=== PATIENT | female | born 1930 | race Caucasian/White ===

== ENCOUNTER 2018-06-25 14:35 | Inpatient (IN) ==
[2018-06-25 14:47] LABS: Basophils % 0.1 % (0.1-2.0); Eosinophils % 0.1 % (0.1-12.0); Hematocrit 38.4 % (37.0-47.0); Hemoglobin 11.9 g/dL (12.2-16.2); Lymphocytes # 1.2 K/mm3 (0.7-4.5); Lymphocytes % 6.2 K/mm3 (10-50); Mean Corpuscular HGB Conc 31.1 g/dL (31.8-35.4); Mean Corpuscular Hemoglobin 29.6 pg (27.0-31.2); Mean Corpuscular Volume 95.3 fl (81-99); Mean Platelet Volume 9.6 fl (7.4-10.4); Monocytes # 1.3 K/mm3 (0.1-1.0); Monocytes % 6.6 % (1.7-9.3); Neutrophils # 17.1 K/mm3 (1.8-7.8); Neutrophils % 86.9 % (37.0-80.0); Platelet Count 195 K/mm3 (142-424); Red Blood Count 4.03 M/mm3 (4.20-5.40); Red Cell Distribution Width 13.7 % (11.5-17.5); White Blood Count 19.7 K/mm3 (4.8-10.8)
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
[2018-06-25 15:00] LABS: Lymphocytes % 7 % (10-50); Monocytes % 5 % (2-9); Neutrophils % 85 % (42-76); RBC Morphology Normal; Total Cells Counted 100
[2018-06-25 15:06] LABS: Alanine Aminotransferase 13 U/L (12-78); Anion Gap 11.7 mEq/L (5-15); Aspartate Amino Transferase 12 U/L (15-37); Bilirubin,Total 0.9 mg/dL (0.2-1.0); Blood Urea Nitrogen 20 mg/dL (7-18); Calcium 8.6 mg/dL (8.5-10.1); Carbon Dioxide 29 mmol/L (21.0-32.0); Chloride 109 mmol/L (98-107); Creatine Kinase 164 U/L (26-192); Glucose 105 mg/dL (74-106); Potassium 3.7 mmoL/L (3.5-5.1); Sodium 146 mmol/L (136-145); Total Protein,Serum 6.4 gm/dL (6.4-8.2)
[2018-06-25 15:07] LABS: Albumin Level 2.9 gm/dL (3.4-5.0); Albumin/Globulin Ratio 0.8 (1.1-1.8); Alkaline Phosphatase 81 U/L (46-116); Globulin 3.5 gm/dl (1.3-3.2)
[2018-06-25 16:04] LABS: Microscopic, Urine URINE MICROSCOPIC (MICROSCOPIC)
[2018-06-25 16:06] LABS: Appearance,Urine CLEAR (Clear); Blood, Urine Negative (Negative); Color,Urine YELLOW (Yellow); Glucose,Urine (UA) Negative (Negative); Ketones,Urine TRACE (Negative); Leukocyte Esterase,Urine Negative (Negative); Protein,Urine 1+ (Negative); Specific Gravity, Urine 1.025 (1.005-1.030)
[2018-06-25 16:13] LABS: Amphetamine/Metha Screen,Urine Negative ng/mL (<1000); Barbiturates Screen,Urine Negative ng/mL (<200); Benzodiazepines Screen,Urine Negative ng/mL (<200); Cannabinoid Screen,Urine Negative ng/mL (<50); Cocaine Screen,Urine Negative ng/mL (<300); Methadone Screen,Urine Negative ng/mL (<300); Opiate Screen,Urine Negative ng/mL (<300); Phencyclidine Screen,Urine Negative ng/mL (<25)
[2018-06-25 16:15] LABS: Bilirubin,Urine Negative (Negative)
[2018-06-25 16:18] LABS: Bacteria,Urine 3+ /lpf; Mucus,Urine 3+ /lpf
--- NOTE | 2018-06-26 07:31 | Pharmacy Consult Notes ---
[facility] Pharmacy VTE Monitoring - Patient Demographics Admission date: 06/25/18 Report Date: 06/26/18 Time: 07:30 Allergies/Adverse Reactions: Patient Allergies No Known Allergies Allergy (Verified 11/22/17 19:04) Height: 1.63 m Weight: 53.779 kg Patient Problems: Current Active Problems Altered mental status (Acute) Dementia (Acute) Aggressive behavior (Acute) DNR (do not resuscitate) (Acute) Pneumonia (Acute) Leucocytosis (Acute) Constipation (Acute) Hypernatremia (Acute) Dehydration (Acute) Pansinusitis (Acute) Lipoma of scalp (Acute) Compression fracture (Acute) - VTE Risk Labs: VTE Related Lab Results Hgb 11.9 g/dL (12.2-16.2) L 06/25/18 14:35 Hct 38.4 % (37.0-47.0) 06/25/18 14:35 Plt Count 195 K/mm3 (142-424) 06/25/18 14:35 BUN 20 mg/dL (7-18) H 06/25/18 14:35 Creatinine 1.06 mg/dL (0.55-1.02) H 06/25/18 14:35 Estimated Creat Clear 54 mL/min (0-300) 06/25/18 14:35 VTE Score: 3 VTE Risk Level: Low Risk - Prophylaxis VTE Prophylaxis Ordered?: Yes Types of VTE Prophylaxis: TEDS Knee High Location of Applied Device: Bilateral Lower Extremeties - VTE Diagnosis Confirmed Treatment or plan recommended: Continue Current Treatment
[2018-06-26 07:51] LABS: Basophils % 0.2 % (0.1-2.0); Eosinophils % 0.3 % (0.1-12.0); Hematocrit 35.8 % (37.0-47.0); Lymphocytes # 1.3 K/mm3 (0.7-4.5); Lymphocytes % 8.2 K/mm3 (10-50); Mean Corpuscular HGB Conc 30.7 g/dL (31.8-35.4); Mean Corpuscular Hemoglobin 29.7 pg (27.0-31.2); Mean Corpuscular Volume 96.6 fl (81-99); Mean Platelet Volume 9.9 fl (7.4-10.4); Monocytes # 0.9 K/mm3 (0.1-1.0); Monocytes % 5.5 % (1.7-9.3); Neutrophils # 13.3 K/mm3 (1.8-7.8); Neutrophils % 85.8 % (37.0-80.0); Platelet Count 186 K/mm3 (142-424); Red Cell Distribution Width 13.6 % (11.5-17.5); White Blood Count 15.5 K/mm3 (4.8-10.8)
[2018-06-26 07:57] LABS: Anion Gap 11.8 mEq/L (5-15); Calcium 8.5 mg/dL (8.5-10.1); Potassium 3.8 mmoL/L (3.5-5.1)
--- NOTE | 2018-06-26 08:18 | History & Physical Report ---
*Admission Date: 06/25/18 *Chief complaint: Mental status changes/confusion *History of present illness: 87-year-old white female, long-term resident of [facility], who has a history of dementia but without behavioral disturbances who was brought to the emergency department because of increasing confusion aggressive behavior, low-grade fevers and fall half-way. In the emergency department she was evaluated, found to have leukocytosis and a possible infiltrate on portable chest x-ray. Other x-rays were nondiagnostic. She was admitted to hospital with a presumptive diagnosis of healthcare acquired pneumonia on [employer]. This morning her family notes that she is "more like herself" and has been communicative, present and has eaten some breakfast. [facility] History I have reviewed the patient's past medical history: Yes Medical History: Reports:: Dementia, Depression, Gastroesophageal Reflux Disease(GERD), Transient Ischemic Attacks (TIA) Denies:: Cancer, Diabetes Mellitus Type 1, Diabetes Mellitus Type 2, Internal Pacemaker, MRSA Other Medical History: Reports: Arthritis Other Surgeries: No: Pacemaker Amputation: No - *Social History Educational Level: Completed High School Smoking Status: Unknown if ever smoked Alcohol Intake: never Occupational Status: retired Housing: half-way Household Members: other - Psychiatric History Expresses thoughts of harming self/others: None Suicide Plan Description: No Plan Review of Systems - Review of Systems Review of systems:: pertinent systems reviewed and negative unless documented below Patient is pleasant, rubs pain in her chest when she takes a deep breath but otherwise denies any other pains. Review of systems is difficult because of her dementia but she denies dyspnea, chest pain or abdominal complaints. [facility] Home Medications Medication Instructions Recorded Confirmed Type Citalopram Hydrobromide [Celexa 10 mg PO DAILY 11/22/17 06/25/18 History 10mg Tablet] Ibuprofen [Motrin 400mg 400 mg PO QID 11/22/17 06/25/18 History tablet] Loratadine [Allergy Relief] 10 mg PO DAILY 11/22/17 06/25/18 History Memantine HCl/Donepezil HCl 1 each PO HS 11/22/17 06/25/18 History [Namzaric 14 mg-10 mg Capsule] OLANZapine [Olanzapine] 2.5 mg PO BID 11/22/17 06/25/18 History raNITIdine HCl [Ranitidine HCl] 150 mg PO BID 11/22/17 06/25/18 History Allergies Allergy/AdvReac Type Severity Reaction Status Date / Time No Known Allergies Allergy Verified 11/22/17 19:04 Exam Vital signs and Labs for Last 24 Hours: Temp Pulse Resp BP Pulse Ox 97.7 F 78 22 126/74 91 L 06/26/18 04:00 06/26/18 04:00 06/26/18 04:00 06/26/18 04:00 06/26/18 04:00 Laboratory Results - last 24 hr 06/25/18 14:35: WBC 19.7 H, RBC 4.03 L, Hgb 11.9 L, Hct 38.4, MCV 95.3, MCH 29.6, MCHC 31.1 L, RDW 13.7, Plt Count 195, MPV 9.6, Neut % (Auto) 86.9 H, Lymph % (Auto) 6.2 L, [place] % (Auto) 6.6, Eos % (Auto) 0.1, Baso % (Auto) 0.1, Neut # (Auto) 17.1 H, Lymph # (Auto) 1.2, [place] # (Auto) 1.3 H, Eos # (Auto) 0.0, Baso # (Auto) 0.0, Total Counted 100, Neutrophils % (Manual) 85 H, Band Neutrophils % 2.0, Lymphocytes % (Manual) 7 L, Atypical Lymphs % 1.0, Monocytes % (Manual) 5, Platelet Estimate Normal, RBC Morphology Normal 06/25/18 14:35: Sodium 146 H, Potassium 3.7, Chloride 109 H, Carbon Dioxide 29, Anion Gap 11.7, BUN 20 H, Creatinine 1.06 H, Estimated Creat Clear 54, Estimated GFR 49 L, Est GFR ( Amer) 59, Glucose 105, Calcium 8.6, Total Bilirubin 0.9, AST 12 L, ALT 13, Alkaline Phosphatase 81, Total Creatine Kinase 164, CK-MB (CK-2) 1.5, CK-MB (CK-2) Rel Index 0.9, Troponin I < 0.02, Total Protein 6.4, Albumin 2.9 L, Globulin 3.5 H, Albumin/Globulin Ratio 0.8 L 06/25/18 14:35: Lactate 1.2 06/25/18 16:00: Urine Color Yellow, Urine Appearance Clear, Urine pH 6.0, Ur Specific [place] 1.025, Urine Protein 1+, Urine Glucose (UA) Negative, Urine Ketones Trace, Urine Blood Negative, Urine Nitrate Negative, Urine Bilirubin Negative, Urine Urobilinogen 1.0, Ur Leukocyte Esterase Negative, Urine WBC 5- 10, Ur Squamous Epith Cells 3-5, Urine Bacteria 3+, Urine Mucus 3+ 06/25/18 16:00: Urine Opiates Screen Negative, Urine Methadone Screen Negative, Ur Barbituates Screen Negative, Ur Phencyclidine Scrn Negative, Ur Amphetamines Screen Negative, U Benzodiazepines Scrn Negative, Urine Cocaine Screen Negative, U Marijuana (THC) Screen Negative 06/26/18 07:45: WBC 15.5 H, RBC 3.70 L, Hgb 11.0 L, Hct 35.8 L, MCV 96.6, MCH 29.7, MCHC 30.7 L, RDW 13.6, Plt Count 186, MPV 9.9, Neut % (Auto) 85.8 H, Lymph % (Auto) 8.2 L, [place] % (Auto) 5.5, Eos % (Auto) 0.3, Baso % (Auto) 0.2, Neut # (Auto) 13.3 H, Lymph # (Auto) 1.3, [place] # (Auto) 0.9, Eos # (Auto) 0.0, Baso # (Auto) 0.0 06/26/18 07:45: Sodium 147 H, Potassium 3.8, Chloride 113 H, Carbon Dioxide 26, Anion Gap 11.8, BUN 18, Creatinine 0.97, Estimated Creat Clear 34, Estimated GFR 54 L, Est GFR ( Amer) 66, Glucose 88, Calcium 8.5, Magnesium 1.9 I & O for Last 24 hours: Intake & Output 06/23/18 06/24/18 06/25/18 06/26/18 11:59 11:59 11:59 11:59 Intake Total 1036 / 1036 Balance 1036 / 1036 Weight 118 lb 9 oz Narrative: Patient appears her stated age. Is frail-appearing. Oropharynx is clear. No JVD. Lungs have rhonchi in the bases bilaterally. Heart rate regular. Abdomen is soft and scaphoid. Extremity's have no edema or clubbing. Is globally weak but able to move all extremities symmetrically. Assessment and Plan (1) Nosocomial pneumonia Current visit: Yes Status: Acute Category: Medical Code(s): J18.9 - Pneumonia, unspecified organism Given patient's leukocytosis and response to antibiotics clinically she would appear to have pneumonia. Continue current antibiotics. Check glucoses r esponse tomorrow Repeat chest x-ray with two-view film now that she is able to sit up and tolerate this procedure. (2) Altered mental status Current visit: Yes Status: Acute Category: Medical Code(s): R41.82 - Altered mental status, unspecified Seems to be improving, continue current medications. Patient will stay on her dementia medications (3) DNR (do not resuscitate) Current visit: Yes Status: Acute Category: Medical Code(s): Z66 - Do not resuscitate Continue to respect DNR status (4) Dehydration Current visit: Yes Status: Acute Category: Medical Code(s): E86.0 - Dehydration Status post IV fluids. Watch sodium levels tomorrow (5) Hypernatremia Current visit: Yes Status: Acute Category: Medical Code(s): E87.0 - Hyperosmolality and hypernatremia
[2018-06-26 09:38] LABS: Lymphocytes % 8 % (10-50); Monocytes % 2 % (2-9); Neutrophils % 88 % (42-76); RBC Morphology Normal; Total Cells Counted 100
--- NOTE | 2018-06-27 00:45 | Progress Note ---
Internal Medicine - PN: Subj *Date: 06/27/18 *Time: 08:45 Interval history: No acute events overnight. Remained afebrile, Eating and drinking well with no signs of aspiration. Hemodynamically stable. Family states patient is ~75% her baseline. No SOA, CP, Dysuria, Fevers Exam Vital signs and Labs for Last 24 Hours: Temp Pulse Resp BP Pulse Ox 98.9 F 71 17 125/63 95 06/26/18 23:59 06/26/18 23:59 06/26/18 23:59 06/26/18 23:59 06/26/18 23:59 Laboratory Results - last 24 hr 06/26/18 07:45: WBC 15.5 H, RBC 3.70 L, Hgb 11.0 L, Hct 35.8 L, MCV 96.6, MCH 29.7, MCHC 30.7 L, RDW 13.6, Plt Count 186, MPV 9.9, Neut % (Auto) 85.8 H, Lymph % (Auto) 8.2 L, [place] % (Auto) 5.5, Eos % (Auto) 0.3, Baso % (Auto) 0.2, Neut # (Auto) 13.3 H, Lymph # (Auto) 1.3, [place] # (Auto) 0.9, Eos # (Auto) 0.0, Baso # (Auto) 0.0, Total Counted 100, Neutrophils % (Manual) 88 H, Band Neutrophils % 2.0, Lymphocytes % (Manual) 8 L, Monocytes % (Manual) 2, Platelet Estimate Normal, RBC Morphology Normal 06/26/18 07:45: Sodium 147 H, Potassium 3.8, Chloride 113 H, Carbon Dioxide 26, Anion Gap 11.8, BUN 18, Creatinine 0.97, Estimated Creat Clear 34, Estimated GFR 54 L, Est GFR ( Amer) 66, Glucose 88, Calcium 8.5, Magnesium 1.9 I & O for Last 24 hours: Intake & Output 06/24/18 06/25/18 06/26/18 06/27/18 23:59 23:59 23:59 23:59 Intake Total 290 / 290 1346 / 1346 Balance 290 / 290 1346 / 1346 Weight 53.779 kg 53.779 kg Microbiology Reports for the Last 24 Hours: Microbiology 06/26/18 17:53 Sputum - Expectorated Sputum Gram Stain - Final 06/25/18 16:00 Urine,Catheterized Urine Culture - Preliminary NO GROWTH AFTER 24 HOURS - Constitutional no acute distress, thin - *Routine HEENT Exam Head: Present: normocephalic, atraumatic Eye: Present: PERRL ENT: Present: mucous membranes moist - *Routine Neck Exam Present: supple. Absent: JVD - *Routine Respiratory Exam Present: CTA bilaterally. Absent: accessory muscle use, prolonged expiratory phase, wheezes, crackles - *Routine Cardiovascular Exam Present: RRR, Normal S1, Normal S2. Absent: murmur - *Routine Abdominal Exam Present: soft, normoactive bowel sounds - *Routine Rectal Exam Patient deferred: visual exam - *Routine Exam Patient deferred: external exam - *Routine Extremities Exam Absent: cyanosis, clubbing, edema - *Routine Skin Exam Present: intact Comments: thin skin, multiple superficial wounds. - *Routine Neurological Exam Present: alert Assessment and Plan (1) Nosocomial pneumonia Current visit: Yes Status: Acute Category: Medical Code(s): J18.9 - Pneumonia, unspecified organism continue IV abx, Sx defervescing - transition to PO this evening - Wean O2 as tolerated, goal >92% when awake and >88% when asleep (2) Altered mental status Current visit: Yes Status: Acute Category: Medical Code(s): R41.82 - Altered mental status, unspecified (3) DNR (do not resuscitate) Current visit: Yes Status: Acute Category: Medical Code(s): Z66 - Do not resuscitate (4) Dehydration Current visit: Yes Status: Acute Category: Medical Code(s): E86.0 - Dehydration (5) Hypernatremia Current visit: Yes Status: Acute Category: Medical Code(s): E87.0 - H yperosmolality and hypernatremia stable ,poor PO intake
[2018-06-27 06:38] LABS: Anion Gap 9.1 mEq/L (5-15); Calcium 8.1 mg/dL (8.5-10.1); Potassium 3.1 mmoL/L (3.5-5.1)
[2018-06-27 06:42] LABS: Basophils % 0.2 % (0.1-2.0); Eosinophils # 0.1 K/mm3 (0.0-0.4); Eosinophils % 1.7 % (0.1-12.0); Hematocrit 32.3 % (37.0-47.0); Lymphocytes # 1.1 K/mm3 (0.7-4.5); Lymphocytes % 12.5 K/mm3 (10-50); Mean Corpuscular Hemoglobin 29.6 pg (27.0-31.2); Mean Corpuscular Volume 95.4 fl (81-99); Mean Platelet Volume 9.8 fl (7.4-10.4); Monocytes # 0.6 K/mm3 (0.1-1.0); Monocytes % 7.1 % (1.7-9.3); Neutrophils # 6.6 K/mm3 (1.8-7.8); Neutrophils % 78.5 % (37.0-80.0); Platelet Count 197 K/mm3 (142-424); Red Blood Count 3.38 M/mm3 (4.20-5.40); Red Cell Distribution Width 13.5 % (11.5-17.5); White Blood Count 8.4 K/mm3 (4.8-10.8)
--- NOTE | 2018-06-28 08:48 | Discharge Summary ---
General - General Admission date:: 06/25/18 Discharge date: 06/28/18 HPI HPI: 87-year-old white female, long-term resident of [facility], who has a history of dementia but without behavioral disturbances who was brought to the emergency department because of increasing confusion aggressive behavior, low-grade fevers and fall [facility]. In the emergency department she was evaluated, found to have leukocytosis and a possible infiltrate on portable chest x-ray. Other x-rays were nondiagnostic. She was admitted to hospital with a presumptive diagnosis of healthcare acquired pneumonia on [employer]. This morning her family notes that she is "more like herself" and has been communicative, present and has eaten some breakfast. Hospital Course Hospital Course: The patient continued to improve in a stepwise fashion, improve her appetite and her mental status changes resolved, and she improved back to her baseline pleasantly confused state. Chest x-ray showed evidence of pneumonia and she was continued on levofloxacin. This morning she was well, most of her breakfast, family was very comfortable with transferring back to [facility] to continue antibiotic therapy orally. Discharge plan will be to do levofloxacin 500 mg daily for the next week. Follow-up will be per our [facility] rounds. Please note she will continue to maintain DNR status. Objective Vital signs: Temp Pulse Resp BP Pulse Ox 99.4 F 78 20 148/81 90 L 06/28/18 07:38 06/28/18 07:38 06/28/18 07:38 06/28/18 07:38 06/28/18 07:38 Narrative: Patient is pleasant, follows most commands.. Oropharynx clear. No JVD. Lungs have some rhonchi but much improved over admission exam, heart rate regular. No edema noted. Results Labs on day of discharge: Preliminary micro results at discharge 06/26/18 17:53 Sputum Culture - Preliminary Sputum - Expectorated Sputum 06/25/18 14:35 Blood Culture - Preliminary Blood NO GROWTH AFTER 48 HOURS 06/25/18 14:35 Blood Culture - Preliminary Blood NO GROWTH AFTER 48 HOURS DS: Diagnosis - Discharge Diagnosis (1) Nosocomial pneumonia Status: Acute (2) Altered mental status Status: Resolved (3) DNR (do not resuscitate) Status: Chronic (4) Dehydration Status: Resolved (5) Hypernatremia Status: Resolved Discharge Plan - Patient Discharge Instructions ACTIVITY: Continue current activity DIET: continue same diet - Follow up Plan Follow up with: Sapna Gallagher APRN [Nurse Practitioner] - Disposition: Xfer SNF Home Medications: Home Medications Medication Instructions Recorded Confirmed Type Ibuprofen [Motrin 400mg 400 mg PO QID 11/22/17 06/25/18 History tablet] Loratadine [Allergy Relief] 10 mg PO DAILY 11/22/17 06/25/18 History OLANZapine [Olanzapine] 2.5 mg PO BID 11/22/17 06/25/18 History raNITIdine HCl [Ranitidine HCl] 150 mg PO BID 11/22/17 06/25/18 History Acetaminophen [Tylenol] 650 mg PO Q4H 06/26/18 06/26/18 History Citalopram Hydrobromide 20 mg PO DAILY 06/26/18 06/26/18 History [Citalopram HBr] Lactulose [Lactulose 10gm/15ml 15 ml PO DAILYP PRN 06/26/18 06/26/18 History Oral Soln] Memantine HCl/Donepezil HCl 1 each PO DAILY 06/26/18 06/26/18 History [Namzaric 28 mg-10 mg Capsule] hydrOXYzine pamoate [Vistaril 25mg 25 mg PO TIDP PRN 06/26/18 06/26/18 History capsule] Prescriptions/Medication Reconciliation: New levoFLOXacin [Levaquin 500mg tab] 500 mg PO DAILY #7 tab Continue raNITIdine HCl [Ranitidine HCl] 150 mg PO BID OLANZapine [Olanzapine] 2.5 mg PO BID Loratadine [Allergy Relief] 10 mg PO DAILY Ibuprofen [Motrin 400mg tablet] 400 mg PO QID Lactulose [Lactulose 10gm/15ml Oral Soln] 15 ml PO DAILYP PRN PRN Reason: STOMACH Acetaminophen [Tylenol] 650 mg PO Q4H Memantine HCl/Donepezil HCl [Namzaric 28 mg-10 mg Capsule] 1 each PO DAILY Citalopram Hydrobromide [Citalopram HBr] 20 mg PO DAILY hydrOXYzine pamoate [Vistaril 25mg capsule] 25 mg PO TIDP PRN PRN Reason: Itching
== END 2018-06-28 12:29 ==
LOC: 2ND 14:35 → ER 14:35 → 2ND 16:47
PROVIDERS: ADMIT Emergency Medicine; ATTEND Internal Medicine Adolescent Medicine